=== PATIENT | female | born 1990 | race Caucasian/White ===

== ENCOUNTER → 2020-11-18 | Outpatient (CLI) | payer OTHER ==
[~2020-11-18] MED LIST: ASPIR 8181 MG PO; ASPIRIN81 MG PO; BENTYL 20MG TAB20 MG PO; IBUPROFEN600 MG PO; NORCO 5-325 TA1 EACH PO; ZOFRAN4 MG PO
[2020-11-18 10:37] LABS: HEMOGLOBIN 16.7 gm/dl (12.3-15.3); RED BLOOD COUNT 5.3 M/UL (4.00-5.10); WHITE BLOOD COUNT 7.7 K/UL (4.5-11.0)
[2020-11-18 11:03] LABS: BUN/CREATININE RATIO 14 (0-10)
== END ==
LOC: LAB 10:09
PROVIDERS: Family Medicine
DX: R07.9 Chest pain, unspecified (principal); R00.2 Palpitations
CPT/HCPCS: 36415; 80053; 84443; 85027; 85379